=== PATIENT | female | born 1960 | race Caucasian/White ===

== ENCOUNTER 2016-05-16 18:53 | Inpatient (IN) | payer OTHER ==
[~2016-05-16] VITALS: Ht 167.6 cm; Wt 94.4 kg
[2016-05-16 19:33] LABS: BASOPHIL COUNT 0.1 K/uL (0-0.1); EOSINOPHIL (%) 1.7 % (0-5); EOSINOPHIL COUNT 0.1 K/uL (0-0.3); HEMATOCRIT 39.8 % (36.0-46.0); IMMATURE GRANULOCYTE (%) 0.2 % (0.0-0.7); IMMATURE GRANULOCYTE COUNT 0.2 K/uL; LYMPHOCYTE COUNT 2.7 K/uL (1.0-2.8); MCH 28.7 PG (29.0-34.0); MCHC 33.9 G/DL (30.0-36.0); MCV 84.5 FL (83-99); MONOCYTE (%) 7.6 % (3-12); MONOCYTE COUNT 0.6 K/uL (0-0.8); NEUTROPHIL (%) 57.3 % (45-76); NEUTROPHIL COUNT 4.8 K/uL (1.8-6.4); PLATELET COUNT 307 K/uL (156-360); RBC DIS.WIDTH-CV 13.1 % (11.8-14.6); RBC DIS.WIDTH-SD 39.6 % (39-53); RED BLOOD COUNT 4.71 M/uL (3.80-5.20); WHITE BLOOD COUNT 8.3 K/uL (4.1-10.2)
[2016-05-16 19:44] LABS: CHLORIDE 106 mEq/L (99-109); POTASSIUM 3.8 mEq/L (3.7-5.4); SODIUM 142 mEq/L (136-147)
[2016-05-16 19:45] LABS: MAGNESIUM 2.3 mg/dL (1.3-2.7)
[2016-05-16 19:47] LABS: GLUCOSE 165 mg/dL (70-99)
[2016-05-16 19:48] LABS: ANION GAP 14 MEQ/L (2-14); TOTAL BILIRUBIN 0.2 mg/dL (0.0-1.0)
[2016-05-16 19:50] LABS: ALKALINE PHOSPHATASE 106 IU/L (3-129); GFR ESTIMATE (CALCULATED) 55 mL/min/
[2016-05-16 19:51] LABS: UREA NITROGEN (BUN) 21 mg/dL (9-23)
[2016-05-16 19:59] LABS: TROP-I INTERPRETATION NEGATIVE; TROPONIN-I 0.01 ng/mL (0.0-0.30)
[2016-05-16 22:06] LABS: ADD MIUA? YES; BILIRUBIN NEGATIVE; BLOOD SMALL; COLOR STRAW ((YELLOW)); GLUCOSE (STRIP) NEGATIVE; KETONES NEGATIVE; LEUKOCYTES NEGATIVE; NITRITE NEGATIVE; PROTEIN (STRIP) NEGATIVE; SPECIFIC GRAVITY 1.033 (1.000-1.030); UROBILINOGEN 0.2 MG/DL (0.2-1.0)
[2016-05-16 22:13] LABS: PROTHROMBIN TIME 9.9 (9.2-11.2); PTT 28.6 (25-32)
[2016-05-16] MEDS ORDERED: PRINZIDE 10-121 EACH PO (22:16)
[2016-05-16] MEDS ORDERED: PROVIGIL200 MG PO (22:16)
[2016-05-16 22:25] LABS: BACTERIA NONE SEEN /HPF; EPITHELIAL CELLS RARE /HPF; MUCUS NONE SEEN /LPF; RENAL EPITHELIAL CELLS RARE /HPF; UCUL ADDED? NO; WHITE BLOOD CELLS 0-5 /HPF (0-5)
[2016-05-17 03:56] LABS: TROP-I INTERPRETATION NEGATIVE; TROPONIN-I < 0.01 ng/mL (0.0-0.30)
[2016-05-17 12:05] LABS: TROP-I INTERPRETATION NEGATIVE; TROPONIN-I < 0.01 ng/mL (0.0-0.30)
[2016-05-17 13:05] LABS: HDL CHOLESTEROL 54 MG/DL (Desirable>=50); LDL CHOLESTEROL 100 mg/dL (Desirable<100); NON-HDL CHOLESTEROL 122 mg/dL (Desirable<160); TOTAL CHOLESTEROL 176 mg/dL (Desirable<200); TRIGLYCERIDES 110 MG/DL (Normal: <150)
[2016-05-17 15:00] VITALS: BP 124/77
[2016-05-17 19:50] VITALS: BP 130/81
[2016-05-18 00:55] VITALS: BP 157/72
[2016-05-18 04:25] VITALS: BP 147/85
[2016-05-18 07:41] VITALS: BP 129/90
[2016-05-18 11:28] VITALS: BP 166/87
[2016-05-18] MEDS ORDERED: ELIQUIS5 MG PO (13:25)
[2016-05-18] MEDS ORDERED: METOPROLOL SUCC25 MG PO (13:25)
== END 2016-05-18 14:30 | disposition home or self-care (01) | DRG 310 ==
LOC: EME 18:53 → EDOF 21:33 → 4EAST 21:33
PROVIDERS: Emergency Medicine; Internal Medicine
DX: I48.0 Paroxysmal atrial fibrillation (principal); G47.33 Obstructive sleep apnea (adult) (pediatric); I10 Essential (primary) hypertension; E66.9 Obesity, unspecified; Z68.33 Body mass index [BMI] 33.0-33.9, adult; F41.9 Anxiety disorder, unspecified; I08.1 Rheumatic disorders of both mitral and tricuspid valves
CPT/HCPCS: 70450; 71010; 71275; 80053; 80061; 81003; 83735; 84443; 84484; 85025; 85610; 85730; 93005; 93306; 99281; 99284; J7030